=== PATIENT | male | born 1995 | race Caucasian/White ===

== ENCOUNTER 2017-07-04 23:20 | Emergency (ER) | payer OTHER ==
[~2017-07-04] VITALS: Ht 188 cm; Wt 99.8 kg
[~2017-07-04 23:20] MED LIST: ACYC400 PO; AZIT250 PO; Budeprion Sr150 MG PO; CEPH500 PO; CODACE30 PO; Cleocin HCl300 MG PO; EAR WAX DROPS15 ML OT; IBUP600 PO; Nystatin15 GM TOP; Percocet 5-3251 EACH PO; Pseudoephedrine30 MG PO; RANI150 PO; TRIPLE ANTIBIOT28 GM TOP; VALA500 PO; Zofran Odt4 MG SL; Zovirax400 MG PO
[2017-07-05 00:56] LABS: BASOPHILS ABSOLUTE AUTO 0.06 K/mm3 (0.00-0.23); BASOPHILS PERCENT AUTO 1 % (0-2); EOSINOPHILS ABSOLUTE AUTO 0.29 K/mm3 (0.00-0.68); EOSINOPHILS PERCENT AUTO 3 % (0-6); Hematocrit 45.9 % (37.0-53.0); Hemoglobin 15.6 g/dL (13.5-17.5); IMMATURE GRAN ABSOLUTE AUTO 0.03 K/mm3 (0.00-0.10); IMMATURE GRAN PERCENT AUTO 0 % (0-1); LYMPHOCYTES ABSOLUTE AUTO 2.99 K/mm3 (0.84-5.20); LYMPHOCYTES PERCENT AUTO 36 % (21-46); MONOCYTES ABSOLUTE AUTO 0.47 K/mm3 (0.16-1.47); MONOCYTES PERCENT AUTO 6 % (4-13); Mean Corpuscular HGB 29.9 pg (26.0-34.0); Mean Corpuscular Volume 88 fL (80-100); NEUTROPHILS ABSOLUTE AUTO 4.59 K/mm3 (1.96-9.15); NEUTROPHILS PERCENT AUTO 54 % (41-73); Platelet Count 185 K/mm3 (150-400); RDW Coefficient Variation 13.2 % (11.7-14.2); RDW Standard Deviation 42.4 fL (35.1-46.3); Red Blood Cell Count 5.21 M/mm3 (4.30-5.90); White Blood Cell Count 8.43 K/mm3 (4.00-11.30)
[2017-07-05 01:15] LABS: Alanine Aminotransfer (ALT/SGP 44 U/L (12-78); Albumin, Blood 4.4 g/dL (3.4-5.0); Albumin/Globulin Ratio 1.2 (0.8-1.8); Alk Phos 66 U/L (50-136); Anion Gap 8 mmol/L (6-16); Aspartate Aminotrans (AST/SGOT 23 U/L (12-37); Bilirubin, Total 0.3 mg/dL (0.1-1.0); Blood Urea Nitrogen 16 mg/dL (8-24); CO2, Blood 29 mmol/L (21-32); Calcium, Blood 9.1 mg/dL (8.5-10.1); Chloride, Blood 102 mmol/L (98-108); Creatinine, Blood 0.73 mg/dL (0.60-1.20); Globulin, Blood 3.6 g/dL (2.2-4.0); Glomerular Filtration Rate >60 (60-); Glucose, Blood 111 mg/dL (70-99); Potassium, Blood 3.4 mmol/L (3.5-5.5); Sodium, Blood 139 mmol/L (136-145); Troponin I <0.015 ng/mL (0.000-0.040)
[2017-07-05 01:31] LABS: Source, Urine Clean Catch
[2017-07-05 01:33] LABS: Bilirubin, Urine Neg (Neg); Blood, Urine Neg (Neg); Glucose Qualitative, Urine Neg (Neg); Ketones, Urine Neg (Neg); Leukocyte Esterase, Urine Neg (Neg); Nitrite, Urine Neg (Neg); Protein, Urine Neg (Neg); Urobilinogen, Urine NORM (Normal); pH, Urine 6.5 (5.0-8.0)
[2017-07-05 01:35] LABS: Appearance, Urine Clear (Clear); Color, Urine Yellow (P-Yellow)
[2018-01-06] MEDS ORDERED: TRAZ100 PO (20:36)
[2018-01-06] MEDS ORDERED: ANTIBIOTIC OINT28 GM TOP (21:17)
[2018-01-06] MEDS ORDERED: Zovirax800 MG PO (21:18)
== END 2017-07-05 02:42 | disposition home or self-care (01) ==
LOC: ER 23:20
PROVIDERS: Emergency Medicine
DX: R07.9 Chest pain, unspecified (principal); R51 Headache; F32.9 Major depressive disorder, single episode, unspecified; Z88.0 Allergy status to penicillin; Z79.899 Other long term (current) drug therapy
CPT/HCPCS: 36415; 71046; 80053; 81003; 83690; 84484; 85025; 93005; 93010; 99283; J1885

== ENCOUNTER 2017-08-12 11:13 | Emergency (ER) | payer OTHER ==
[~2017-08-12] VITALS: Ht 188 cm; Wt 104.3 kg
[2017-08-12 12:03] LABS: BASOPHILS ABSOLUTE AUTO 0.02 K/mm3 (0.00-0.23); BASOPHILS PERCENT AUTO 0 % (0-2); EOSINOPHILS ABSOLUTE AUTO 0.01 K/mm3 (0.00-0.68); EOSINOPHILS PERCENT AUTO 0 % (0-6); Hematocrit 41.6 % (37.0-53.0); IMMATURE GRAN ABSOLUTE AUTO 0.02 K/mm3 (0.00-0.10); IMMATURE GRAN PERCENT AUTO 0 % (0-1); LYMPHOCYTES ABSOLUTE AUTO 0.31 K/mm3 (0.84-5.20); LYMPHOCYTES PERCENT AUTO 7 % (21-46); MONOCYTES ABSOLUTE AUTO 0.53 K/mm3 (0.16-1.47); MONOCYTES PERCENT AUTO 12 % (4-13); Mean Corpuscular HGB 29.4 pg (26.0-34.0); Mean Corpuscular HGB Conc 33.7 g/dL (31.5-36.5); Mean Corpuscular Volume 87 fL (80-100); NEUTROPHILS ABSOLUTE AUTO 3.62 K/mm3 (1.96-9.15); NEUTROPHILS PERCENT AUTO 80 % (41-73); Red Blood Cell Count 4.76 M/mm3 (4.30-5.90); White Blood Cell Count 4.51 K/mm3 (4.00-11.30)
[2017-08-12 12:04] LABS: Mean Platelet Volume 11.8 fL (9.1-12.4); Platelet Count 135 K/mm3 (150-400)
[2017-08-12 12:21] LABS: Influenza A Positive (NEGATIVE); Influenza B Negative (NEGATIVE)
[2017-08-12 12:22] LABS: Alanine Aminotransfer (ALT/SGP 30 U/L (12-78); Albumin, Blood 4.2 g/dL (3.4-5.0); Albumin/Globulin Ratio 1.2 (0.8-1.8); Alk Phos 58 U/L (50-136); Anion Gap 6 mmol/L (6-16); Aspartate Aminotrans (AST/SGOT 19 U/L (12-37); Bilirubin, Total 0.4 mg/dL (0.1-1.0); Blood Urea Nitrogen 12 mg/dL (8-24); Bun/Creatinine Ratio 13.3 (12.0-20.0); CO2, Blood 28 mmol/L (21-32); Calcium, Blood 9.2 mg/dL (8.5-10.1); Chloride, Blood 100 mmol/L (98-108); Globulin, Blood 3.4 g/dL (2.2-4.0); Glomerular Filtration Rate >60 (60-); Glucose, Blood 88 mg/dL (70-99); Potassium, Blood 3.6 mmol/L (3.5-5.5); Sodium, Blood 134 mmol/L (136-145); Total Protein, Blood 7.6 g/dL (6.4-8.2)
[2017-08-12] MEDS ORDERED: Zofran4 MG PO (12:39)
[2017-08-12] MEDS ORDERED: ACETAMINOPHEN500 MG PO (12:39)
[2017-08-12] MEDS ORDERED: Cheratussin AC118 ML PO (12:39)
[2017-08-12] MEDS ORDERED: IBUP400 PO (12:39)
[2018-01-06] MEDS ORDERED: TRAZ100 PO (20:36)
[2018-01-06] MEDS ORDERED: ANTIBIOTIC OINT28 GM TOP (21:17)
[2018-01-06] MEDS ORDERED: Zovirax800 MG PO (21:18)
== END 2017-08-12 13:05 | disposition home or self-care (01) ==
LOC: ER 11:13
PROVIDERS: Physician Assistant
DX: J10.1 Influenza due to other identified influenza virus with other respiratory manifestations (principal); F32.9 Major depressive disorder, single episode, unspecified; F17.210 Nicotine dependence, cigarettes, uncomplicated; Z88.0 Allergy status to penicillin; Z79.899 Other long term (current) drug therapy
CPT/HCPCS: 36415; 71046; 80053; 85025; 87804; 96361; 96374; 99284; J2405; J7030

== ENCOUNTER 2017-09-12 13:21 | Emergency (ER) | payer OTHER ==
[~2017-09-12] VITALS: Ht 188 cm; Wt 95.2 kg
[~2017-09-12 13:21] MED LIST changes: +ACETAMINOPHEN500 MG PO; +Cheratussin AC118 ML PO; +IBUP400 PO; +Zofran4 MG PO
[2017-09-12 16:16] LABS: BASOPHILS ABSOLUTE AUTO 0.05 K/mm3 (0.00-0.23); BASOPHILS PERCENT AUTO 1 % (0-2); EOSINOPHILS ABSOLUTE AUTO 0.34 K/mm3 (0.00-0.68); EOSINOPHILS PERCENT AUTO 6 % (0-6); Hematocrit 47.8 % (37.0-53.0); Hemoglobin 16.3 g/dL (13.5-17.5); IMMATURE GRAN ABSOLUTE AUTO 0.03 K/mm3 (0.00-0.10); IMMATURE GRAN PERCENT AUTO 1 % (0-1); LYMPHOCYTES ABSOLUTE AUTO 2.23 K/mm3 (0.84-5.20); LYMPHOCYTES PERCENT AUTO 36 % (21-46); MONOCYTES ABSOLUTE AUTO 0.45 K/mm3 (0.16-1.47); MONOCYTES PERCENT AUTO 7 % (4-13); Mean Corpuscular HGB 29.1 pg (26.0-34.0); Mean Corpuscular HGB Conc 34.1 g/dL (31.5-36.5); Mean Platelet Volume 11.6 fL (9.1-12.4); NEUTROPHILS ABSOLUTE AUTO 3.12 K/mm3 (1.96-9.15); NEUTROPHILS PERCENT AUTO 50 % (41-73); Platelet Count 207 K/mm3 (150-400); RDW Coefficient Variation 12.5 % (11.7-14.2); RDW Standard Deviation 38.8 fL (35.1-46.3); White Blood Cell Count 6.22 K/mm3 (4.00-11.30)
[2017-09-12 16:20] LABS: Mean Corpuscular Volume 85 fL (80-100)
[2017-09-12 16:24] LABS: Alanine Aminotransfer (ALT/SGP 40 U/L (12-78); Albumin, Blood 4.5 g/dL (3.4-5.0); Albumin/Globulin Ratio 1.2 (0.8-1.8); Alk Phos 66 U/L (50-136); Anion Gap 5 mmol/L (6-16); Aspartate Aminotrans (AST/SGOT 24 U/L (12-37); Bilirubin, Total 0.5 mg/dL (0.1-1.0); Blood Urea Nitrogen 21 mg/dL (8-24); Bun/Creatinine Ratio 25.7 (12.0-20.0); CO2, Blood 28 mmol/L (21-32); Calcium, Blood 9.4 mg/dL (8.5-10.1); Chloride, Blood 105 mmol/L (98-108); Creatinine, Blood 0.82 mg/dL (0.60-1.20); Globulin, Blood 3.8 g/dL (2.2-4.0); Glomerular Filtration Rate >60 (60-); Glucose, Blood 138 mg/dL (70-99); Potassium, Blood 3.6 mmol/L (3.5-5.5); Sodium, Blood 138 mmol/L (136-145); Total Protein, Blood 8.3 g/dL (6.4-8.2)
[2017-09-12] MEDS ORDERED: ESCI20 PO (18:50)
[2017-09-12 19:48] LABS: Source, Urine Clean Catch
[2017-09-12 19:56] LABS: Blood, Urine Neg (Neg); Glucose Qualitative, Urine Neg (Neg); Ketones, Urine 1+ (Neg); Leukocyte Esterase, Urine 1+ (Neg); Nitrite, Urine Neg (Neg); Protein, Urine 1+ (Neg); Specific Gravity, Urine 1.025 (1.003-1.022); Urobilinogen, Urine 2+ (Normal)
[2017-09-12 20:04] LABS: Bilirubin, Urine 1+ (Neg)
[2017-09-12 20:05] LABS: Appearance, Urine Clear (Clear); Bacteria Many /hpf; Color, Urine Yellow (P-Yellow); Red Blood Cells, Urine 0-2 /hpf (0-2); Squamous Epithelial Cells Few /hpf (Few); White Blood Cells, Urine 0-2 /hpf (0-5)
[2017-09-12 20:06] LABS: Calcium Oxalate Crystals Few /hpf; Mucus Heavy (0-Heavy)
[2017-09-12 20:07] LABS: U Amphetamine Screen DETECTED; U Barbituate Screen Not Detected; U Benzodiazapine Screen Not Detected; U Buprenorphine Screen Not Detected; U Cannabinoids Screen Not Detected; U Cocaine Screen Not Detected; U Methadone Screen Not Detected; U Methamphetamine Screen DETECTED; U Opiates Screen Not Detected; U Oxycodone Screen Not Detected; U Phencyclidine Screen Not Detected; U Propoxyphene Screen Not Detected
== END 2017-09-12 19:40 | disposition home or self-care (01) ==
LOC: ER 13:21
PROVIDERS: Emergency Medicine
DX: R56.9 Unspecified convulsions (principal); F32.9 Major depressive disorder, single episode, unspecified; F41.9 Anxiety disorder, unspecified; F17.210 Nicotine dependence, cigarettes, uncomplicated; Z79.899 Other long term (current) drug therapy
CPT/HCPCS: 36415; 70450; 80053; 81001; 85025; 87086; 93005; 93010; 99284; G0480

== ENCOUNTER 2018-02-08 14:45 | Emergency (ER) | payer OTHER ==
[~2018-02-08] VITALS: Ht 188 cm; Wt 102.1 kg
[~2018-02-08 14:45] MED LIST changes: +ANTIBIOTIC OINT28 GM TOP; +ESCI20 PO; +TRAZ100 PO; +Zovirax800 MG PO
== END 2018-02-08 16:11 | disposition home or self-care (01) ==
LOC: ER 14:45
DX: N34.2 Other urethritis (principal); F32.9 Major depressive disorder, single episode, unspecified; F17.210 Nicotine dependence, cigarettes, uncomplicated; Z88.0 Allergy status to penicillin; Z79.899 Other long term (current) drug therapy
CPT/HCPCS: 99282; J1580

== ENCOUNTER 2018-06-18 09:27 | Emergency (ER) | payer OTHER ==
[~2018-06-18] VITALS: Ht 188 cm; Wt 113.4 kg
[2018-06-18] MEDS ORDERED: METPRE4DP PO (10:27)
[2018-06-18] MEDS ORDERED: ALBU90OI INH (10:27)
[2018-06-18] MEDS ORDERED: Zithromax250 MG PO (10:27)
[2018-07-29] MEDS ORDERED: ALBU90OI INH (19:24)
== END 2018-06-18 10:40 | disposition home or self-care (01) ==
LOC: ER 09:27
DX: J45.909 Unspecified asthma, uncomplicated (principal); Z88.0 Allergy status to penicillin; Z79.899 Other long term (current) drug therapy; F32.9 Major depressive disorder, single episode, unspecified; F17.210 Nicotine dependence, cigarettes, uncomplicated
CPT/HCPCS: 71046; 99283-25

== ENCOUNTER 2018-06-24 16:17 | Emergency (ER) | payer OTHER ==
[~2018-06-24] VITALS: Ht 188 cm; Wt 113.4 kg
[~2018-06-24 16:17] MED LIST changes: +ALBU90OI INH; +METPRE4DP PO; +Zithromax250 MG PO
[2018-06-24 17:15] LABS: Calcium, Ionized (POC) 1.19 mmol/L (1.10-1.46); Chloride (POC) 103 mmol/L (98-108); Creatinine (POC) 0.9 mg/dL (0.8-1.3); Glucose (ISTAT POC) 85 mg/dL (70-99); Hemoglobin (POC) 16.3 g/dL (13.5-17.5); Sodium (POC) 143 mmol/L (135-148); Total CO2 (POC) 27 mmol/L (21-32)
[2018-06-24] MEDS ORDERED: CEFP200 PO (17:29)
[2018-07-29] MEDS ORDERED: ALBU90OI INH (19:24)
== END 2018-06-24 17:34 | disposition home or self-care (01) ==
LOC: ER 16:17
DX: J45.909 Unspecified asthma, uncomplicated (principal); F32.9 Major depressive disorder, single episode, unspecified; F17.210 Nicotine dependence, cigarettes, uncomplicated; Z88.0 Allergy status to penicillin; Z79.899 Other long term (current) drug therapy
CPT/HCPCS: 80047; 85014; 99283

== ENCOUNTER 2018-08-21 08:29 | Emergency (ER) | payer OTHER ==
[~2018-08-21] VITALS: Ht 188 cm; Wt 115.7 kg
[~2018-08-21 08:29] MED LIST changes: +CEFP200 PO
[2018-08-21] MEDS ORDERED: TRAZ150T57 (09:00)
[2018-08-21] MEDS ORDERED: Zantac150 MG (09:00)
[2018-08-21 09:38] LABS: BASOPHILS ABSOLUTE AUTO 0.05 K/mm3 (0.00-0.23); BASOPHILS PERCENT AUTO 1 % (0-2); EOSINOPHILS ABSOLUTE AUTO 0.36 K/mm3 (0.00-0.68); EOSINOPHILS PERCENT AUTO 6 % (0-6); Hematocrit 43.6 % (37.0-53.0); Hemoglobin 14.7 g/dL (13.5-17.5); IMMATURE GRAN ABSOLUTE AUTO 0.03 K/mm3 (0.00-0.10); IMMATURE GRAN PERCENT AUTO 1 % (0-1); LYMPHOCYTES ABSOLUTE AUTO 2.06 K/mm3 (0.84-5.20); LYMPHOCYTES PERCENT AUTO 35 % (21-46); MONOCYTES ABSOLUTE AUTO 0.41 K/mm3 (0.16-1.47); MONOCYTES PERCENT AUTO 7 % (4-13); Mean Corpuscular HGB 29.6 pg (26.0-34.0); Mean Corpuscular HGB Conc 33.7 g/dL (31.5-36.5); Mean Corpuscular Volume 88 fL (80-100); Mean Platelet Volume 11.2 fL (9.1-12.4); NEUTROPHILS ABSOLUTE AUTO 3.01 K/mm3 (1.96-9.15); NEUTROPHILS PERCENT AUTO 51 % (41-73); Platelet Count 180 K/mm3 (150-400); RDW Coefficient Variation 12.9 % (11.7-14.2); RDW Standard Deviation 41.4 fL (35.1-46.3); Red Blood Cell Count 4.96 M/mm3 (4.30-5.90); White Blood Cell Count 5.92 K/mm3 (4.00-11.30)
[2018-08-21 09:50] LABS: International Normalized Ratio 0.99; Prothrombin Time Results 10.5 Sec (9.7-11.5)
[2018-08-21 10:01] LABS: Alanine Aminotransfer (ALT/SGP 104 U/L (12-78); Albumin, Blood 3.8 g/dL (3.4-5.0); Albumin/Globulin Ratio 1.2 (0.8-1.8); Alk Phos 57 U/L (50-136); Anion Gap 7 mmol/L (6-16); Aspartate Aminotrans (AST/SGOT 39 U/L (12-37); Bilirubin, Total 0.3 mg/dL (0.1-1.0); Blood Urea Nitrogen 15 mg/dL (8-24); Bun/Creatinine Ratio 20.1 (12.0-20.0); CO2, Blood 26 mmol/L (21-32); Calcium, Blood 8.6 mg/dL (8.5-10.1); Chloride, Blood 109 mmol/L (98-108); Creatinine, Blood 0.75 mg/dL (0.60-1.20); Globulin, Blood 3.1 g/dL (2.2-4.0); Glomerular Filtration Rate >60 (60-); Glucose, Blood 93 mg/dL (70-99); Potassium, Blood 3.8 mmol/L (3.5-5.5); Sodium, Blood 142 mmol/L (136-145); Total Protein, Blood 6.9 g/dL (6.4-8.2)
[2018-08-21] MEDS ORDERED: OMEPRAZOLE MAGN20 MG PO (10:30)
== END 2018-08-21 10:53 | disposition home or self-care (01) ==
LOC: ER 08:29
PROVIDERS: Emergency Medicine
DX: K92.1 Melena (principal); F32.9 Major depressive disorder, single episode, unspecified; F17.210 Nicotine dependence, cigarettes, uncomplicated; Z88.0 Allergy status to penicillin; Z79.899 Other long term (current) drug therapy
CPT/HCPCS: 36415; 80053; 82272; 85025; 85610; 96374; 99284-25; C9113

== ENCOUNTER 2018-08-30 15:28 | Emergency (ER) | payer OTHER ==
[~2018-08-30] VITALS: Ht 188 cm; Wt 113.4 kg
[~2018-08-30 15:28] MED LIST changes: +OMEPRAZOLE MAGN20 MG PO; +TRAZ150T57; +Zantac150 MG PO
[2018-08-30 16:19] LABS: BASOPHILS ABSOLUTE AUTO 0.06 K/mm3 (0.00-0.23); BASOPHILS PERCENT AUTO 1 % (0-2); EOSINOPHILS ABSOLUTE AUTO 0.31 K/mm3 (0.00-0.68); EOSINOPHILS PERCENT AUTO 3 % (0-6); Hematocrit 44.7 % (37.0-53.0); Hemoglobin 15.3 g/dL (13.5-17.5); IMMATURE GRAN ABSOLUTE AUTO 0.04 K/mm3 (0.00-0.10); IMMATURE GRAN PERCENT AUTO 0 % (0-1); LYMPHOCYTES ABSOLUTE AUTO 2.46 K/mm3 (0.84-5.20); LYMPHOCYTES PERCENT AUTO 26 % (21-46); MONOCYTES ABSOLUTE AUTO 0.46 K/mm3 (0.16-1.47); MONOCYTES PERCENT AUTO 5 % (4-13); Mean Corpuscular HGB 30.1 pg (26.0-34.0); Mean Corpuscular HGB Conc 34.2 g/dL (31.5-36.5); Mean Corpuscular Volume 88 fL (80-100); Mean Platelet Volume 11.6 fL (9.1-12.4); NEUTROPHILS ABSOLUTE AUTO 6.12 K/mm3 (1.96-9.15); NEUTROPHILS PERCENT AUTO 65 % (41-73); Platelet Count 182 K/mm3 (150-400); RDW Coefficient Variation 12.5 % (11.7-14.2); RDW Standard Deviation 40.7 fL (35.1-46.3); Red Blood Cell Count 5.08 M/mm3 (4.30-5.90); White Blood Cell Count 9.45 K/mm3 (4.00-11.30)
[2018-08-30 16:43] LABS: Alanine Aminotransfer (ALT/SGP 123 U/L (12-78); Albumin, Blood 4.2 g/dL (3.4-5.0); Albumin/Globulin Ratio 1.2 (0.8-1.8); Alk Phos 73 U/L (50-136); Anion Gap 7 mmol/L (6-16); Aspartate Aminotrans (AST/SGOT 54 U/L (12-37); Bilirubin, Total 0.3 mg/dL (0.1-1.0); Blood Urea Nitrogen 14 mg/dL (8-24); Bun/Creatinine Ratio 18.4 (12.0-20.0); CO2, Blood 24 mmol/L (21-32); Calcium, Blood 9.3 mg/dL (8.5-10.1); Chloride, Blood 108 mmol/L (98-108); Creatinine, Blood 0.76 mg/dL (0.60-1.20); Globulin, Blood 3.5 g/dL (2.2-4.0); Glomerular Filtration Rate >60 (60-); Glucose, Blood 103 mg/dL (70-99); Potassium, Blood 3.8 mmol/L (3.5-5.5); Sodium, Blood 139 mmol/L (136-145); Total Protein, Blood 7.7 g/dL (6.4-8.2)
== END 2018-08-30 18:50 | disposition left against medical advice (07) ==
LOC: ER 15:28
PROVIDERS: Physician Assistant
DX: R10.9 Unspecified abdominal pain (principal)
CPT/HCPCS: 36415; 80053; 83690; 85025; 99284

== ENCOUNTER → 2019-02-26 | Outpatient (CLI) | payer OTHER ==
[~2019-02-26] MED LIST changes: +CEFD300 PO; +Inderal80 MG
== END | disposition home or self-care (01) ==
LOC: PLD 08:39 → LAB SHORT 08:39
DX: D22.4 Melanocytic nevi of scalp and neck (principal); D22.21 Melanocytic nevi of right ear and external auricular canal
CPT/HCPCS: 88305

== ENCOUNTER 2019-03-03 00:52 | Emergency (ER) | payer OTHER ==
[~2019-03-03] VITALS: Ht 188 cm; Wt 115.7 kg
[~2019-03-03 00:52] MED LIST changes: -CEFD300 PO; -Inderal80 MG
[2019-03-04] MEDS ORDERED: Inderal80 MG (17:17)
[2019-03-04] MEDS ORDERED: CEFD300 PO (17:17)
== END 2019-03-03 02:16 | disposition home or self-care (01) ==
LOC: ER 00:52
DX: K08.89 Other specified disorders of teeth and supporting structures (principal); F32.9 Major depressive disorder, single episode, unspecified; F17.210 Nicotine dependence, cigarettes, uncomplicated; Z88.0 Allergy status to penicillin; Z79.899 Other long term (current) drug therapy
CPT/HCPCS: 64400; 99282-25

== ENCOUNTER 2019-03-04 | Emergency (ER) | payer OTHER ==
[~2019-03-04] VITALS: Ht 188 cm; Wt 115.7 kg
[2019-03-04] MEDS ORDERED: Inderal80 MG (17:17)
[2019-03-04] MEDS ORDERED: CEFD300 PO (17:17)
== END 2019-03-04 00:23 | disposition home or self-care (01) ==
LOC: ER
DX: K08.89 Other specified disorders of teeth and supporting structures (principal); Z88.0 Allergy status to penicillin; Z79.899 Other long term (current) drug therapy; F32.9 Major depressive disorder, single episode, unspecified; F17.210 Nicotine dependence, cigarettes, uncomplicated; K21.9 Gastro-esophageal reflux disease without esophagitis
CPT/HCPCS: 64400; 99282-25

== ENCOUNTER 2019-03-05 00:06 | Emergency (ER) | payer OTHER ==
[~2019-03-05] VITALS: Ht 188 cm; Wt 115.7 kg
[~2019-03-05 00:06] MED LIST changes: +CEFD300 PO; +Inderal80 MG
== END 2019-03-05 00:35 | disposition home or self-care (01) ==
LOC: ER 00:06
DX: K08.89 Other specified disorders of teeth and supporting structures (principal); Z88.0 Allergy status to penicillin; Z79.899 Other long term (current) drug therapy; F32.9 Major depressive disorder, single episode, unspecified; F17.210 Nicotine dependence, cigarettes, uncomplicated
CPT/HCPCS: 99282; A9270

== ENCOUNTER 2020-05-01 20:31 | Emergency (ER) | payer OTHER ==
[~2020-05-01] VITALS: Ht 188 cm; Wt 122.0 kg
[2020-05-01] MEDS ORDERED: Keflex500 MG PO (21:28)
== END 2020-05-01 20:57 | disposition home or self-care (01) ==
LOC: ER 20:31
DX: L02.214 Cutaneous abscess of groin (principal); F32.9 Major depressive disorder, single episode, unspecified; F17.210 Nicotine dependence, cigarettes, uncomplicated; Z88.0 Allergy status to penicillin; Z79.899 Other long term (current) drug therapy
CPT/HCPCS: 99283

== ENCOUNTER 2020-08-16 10:15 | Emergency (ER) | payer OTHER ==
[~2020-08-16] VITALS: Ht 188 cm; Wt 117.9 kg
[~2020-08-16 10:15] MED LIST changes: +Keflex500 MG PO
[2020-08-16] MEDS ORDERED: Norco 5-325 Ta1 EACH PO (11:40)
[2020-08-16] MEDS ORDERED: CYCL10 PO (11:40)
[2020-08-17] MEDS ORDERED: CYCL10 PO (15:41)
[2020-08-17] MEDS ORDERED: CAPSAICIN HOT1 EACH TD (15:41)
[2020-08-17] MEDS ORDERED: HYDR1TAB94 PO (15:41)
== END 2020-08-16 11:48 | disposition home or self-care (01) ==
LOC: ER 10:15
DX: M54.42 Lumbago with sciatica, left side (principal); M54.41 Lumbago with sciatica, right side; F17.210 Nicotine dependence, cigarettes, uncomplicated; Z88.0 Allergy status to penicillin; Z79.899 Other long term (current) drug therapy
CPT/HCPCS: 96372; 99282-25; A9270; J1885

== ENCOUNTER 2020-08-17 12:51 | Emergency (ER) | payer OTHER ==
[~2020-08-17] VITALS: Ht 188 cm; Wt 117.9 kg
[~2020-08-17 12:51] MED LIST changes: +CYCL10 PO; +Norco 5-325 Ta1 EACH PO
[2020-08-17] MEDS ORDERED: HYDR1TAB94 PO (15:41)
[2020-08-17] MEDS ORDERED: CAPSAICIN HOT1 EACH TD (15:41)
[2020-08-17] MEDS ORDERED: CYCL10 PO (15:41)
== END 2020-08-17 15:51 | disposition home or self-care (01) ==
LOC: ER 12:51
DX: M62.830 Muscle spasm of back (principal); F17.210 Nicotine dependence, cigarettes, uncomplicated; Z88.0 Allergy status to penicillin
CPT/HCPCS: 96372; 99283-25; J1885

== ENCOUNTER 2021-10-23 09:42 | Emergency (ER) | payer OTHER ==
[~2021-10-23] VITALS: Ht 188 cm; Wt 120.2 kg
[~2021-10-23 09:42] MED LIST changes: +CAPSAICIN HOT1 EACH TD; +DIPATR PO; +HYDR1TAB94 PO; +ONDA4ODT MM
[2021-10-23 10:42] LABS: BASOPHILS ABSOLUTE AUTO 0.06 K/mm3 (0.00-0.23); BASOPHILS PERCENT AUTO 1 % (0-2); EOSINOPHILS ABSOLUTE AUTO 0.37 K/mm3 (0.00-0.68); EOSINOPHILS PERCENT AUTO 5 % (0-6); Hematocrit 47.1 % (37.0-53.0); Hemoglobin 16.3 g/dL (13.5-17.5); IMMATURE GRAN ABSOLUTE AUTO 0.08 K/mm3 (0.00-0.10); IMMATURE GRAN PERCENT AUTO 1 % (0-1); LYMPHOCYTES ABSOLUTE AUTO 2.35 K/mm3 (0.84-5.20); LYMPHOCYTES PERCENT AUTO 35 % (21-46); MONOCYTES ABSOLUTE AUTO 0.44 K/mm3 (0.16-1.47); MONOCYTES PERCENT AUTO 7 % (4-13); Mean Corpuscular HGB 30.4 pg (26.0-34.0); Mean Corpuscular HGB Conc 34.6 g/dL (31.5-36.5); Mean Corpuscular Volume 88 fL (80-100); Mean Platelet Volume 11.4 fL (9.1-12.4); NEUTROPHILS ABSOLUTE AUTO 3.51 K/mm3 (1.96-9.15); NEUTROPHILS PERCENT AUTO 52 % (41-73); Platelet Count 203 K/mm3 (150-400); RDW Coefficient Variation 13.4 % (11.7-14.2); RDW Standard Deviation 42.9 fL (35.1-46.3); Red Blood Cell Count 5.37 M/mm3 (4.30-5.90); White Blood Cell Count 6.81 K/mm3 (4.00-11.30)
[2021-10-23] MEDS ORDERED: HYDCOR2.5C TOP (13:48)
== END 2021-10-23 14:07 | disposition home or self-care (01) ==
LOC: ER 09:42
PROVIDERS: Emergency Medicine
DX: K64.4 Residual hemorrhoidal skin tags (principal); K21.9 Gastro-esophageal reflux disease without esophagitis; F17.210 Nicotine dependence, cigarettes, uncomplicated; Z79.899 Other long term (current) drug therapy; Z88.0 Allergy status to penicillin
CPT/HCPCS: 36415; 85025

== ENCOUNTER 2022-03-28 11:22 | Emergency (ER) | payer OTHER ==
[~2022-03-28] VITALS: Ht 188 cm; Wt 108.9 kg
[~2022-03-28 11:22] MED LIST changes: +HYDCOR2.5C TOP
[2022-03-28 12:06] LABS: BASOPHILS ABSOLUTE AUTO 0.06 K/mm3 (0.00-0.23); BASOPHILS PERCENT AUTO 1 % (0-2); EOSINOPHILS ABSOLUTE AUTO 0.26 K/mm3 (0.00-0.68); EOSINOPHILS PERCENT AUTO 4 % (0-6); Hematocrit 48.5 % (37.0-53.0); Hemoglobin 16.5 g/dL (13.5-17.5); IMMATURE GRAN ABSOLUTE AUTO 0.04 K/mm3 (0.00-0.10); IMMATURE GRAN PERCENT AUTO 1 % (0-1); LYMPHOCYTES ABSOLUTE AUTO 2.29 K/mm3 (0.84-5.20); LYMPHOCYTES PERCENT AUTO 36 % (21-46); MONOCYTES ABSOLUTE AUTO 0.37 K/mm3 (0.16-1.47); MONOCYTES PERCENT AUTO 6 % (4-13); Mean Corpuscular HGB 30.3 pg (26.0-34.0); Mean Corpuscular Volume 89 fL (80-100); Mean Platelet Volume 11.1 fL (9.1-12.4); NEUTROPHILS ABSOLUTE AUTO 3.34 K/mm3 (1.96-9.15); NEUTROPHILS PERCENT AUTO 53 % (41-73); Platelet Count 208 K/mm3 (150-400); RDW Coefficient Variation 12.6 % (11.7-14.2); RDW Standard Deviation 41.1 fL (35.1-46.3); Red Blood Cell Count 5.45 M/mm3 (4.30-5.90); White Blood Cell Count 6.36 K/mm3 (4.00-11.30)
[2022-03-28 12:16] LABS: Source, Urine Clean Catch
[2022-03-28 12:21] LABS: Albumin, Blood 4.1 g/dL (3.4-5.0); Albumin/Globulin Ratio 1.1 (0.8-1.8); Bilirubin, Total 0.4 mg/dL (0.1-1.0); Bun/Creatinine Ratio 22.8 (12.0-20.0); Calcium, Blood 9.3 mg/dL (8.5-10.1); Creatinine, Blood 0.79 mg/dL (0.60-1.20); Globulin, Blood 3.8 g/dL (2.2-4.0); Potassium, Blood 3.9 mmol/L (3.5-5.5); Total Protein, Blood 7.9 g/dL (6.4-8.2)
[2022-03-28 12:24] LABS: Bilirubin, Urine Neg (Neg); Blood, Urine Neg (Neg); Color, Urine Yellow (P-Yellow); Glucose Qualitative, Urine Neg (Neg); Ketones, Urine 1+ (Neg); Leukocyte Esterase, Urine 1+ (Neg); Nitrite, Urine Neg (Neg); Protein, Urine 1+ (Neg); Urobilinogen, Urine NORM (Normal)
[2022-03-28 12:47] LABS: Red Blood Cells, Urine 0-2 /hpf (0-2); White Blood Cells, Urine 0-2 /hpf (0-5)
[2022-03-28 12:48] LABS: Amorphous Heavy (0-Heavy); Bacteria Many /hpf; Squamous Epithelial Cells Rare /hpf (Few)
[2022-03-28 12:49] LABS: Appearance, Urine Cloudy (Clear)
[2022-03-28] MEDS ORDERED: METR500 PO (14:32)
[2022-03-28] MEDS ORDERED: CIPR500 PO (14:32)
[2022-03-28 15:07] LABS: Adenovirus F 40/41 Not Detected (NOT DETECT); Astrovirus Not Detected (NOT DETECT); Campylobacter Sp Not Detected (NOT DETECT); Cryptosporidium Not Detected (NOT DETECT); Cyclospora Cayetanensis Not Detected (NOT DETECT); E. Coli O157 Not Detected (NOT DETECT); Entamoeba Histolytica Not Detected (NOT DETECT); Enteroaggregative E. coli-EAEC Not Detected (NOT DETECT); Enteropathogenic E. coli-EPEC Not Detected (NOT DETECT); Enterotoxigenic E. coli-ETEC Not Detected (NOT DETECT); Giardia Lamblia Not Detected (NOT DETECT); Norovirus GI/GII Not Detected (NOT DETECT); Plesiomonas Shigelloides Not Detected (NOT DETECT); Rotavirus A Not Detected (NOT DETECT); Salmonella Sp Not Detected (NOT DETECT); Sapovirus Not Detected (NOT DETECT); Shiga Toxin-prod E. coli-STEC Not Detected (NOT DETECT); Shigella/Enteroin E. coli-EIEC Not Detected (NOT DETECT); Vibrio Cholerae Not Detected (NOT DETECT); Vibrio Sp Not Detected (NOT DETECT); Yersinia Enterocolitica Not Detected (NOT DETECT)
== END 2022-03-28 14:41 | disposition home or self-care (01) ==
LOC: ER 11:22
PROVIDERS: Emergency Medicine; Physician Assistant
DX: K62.89 Other specified diseases of anus and rectum (principal); K21.9 Gastro-esophageal reflux disease without esophagitis; F17.210 Nicotine dependence, cigarettes, uncomplicated; Z79.899 Other long term (current) drug therapy
CPT/HCPCS: 36415; 74177; 80053; 81001; 83690; 85025; 86850; 86900; 86901; 87086; 87324; 87507; J2405; Q9967

== ENCOUNTER 2022-06-28 10:09 | Emergency (ER) | payer OTHER ==
[~2022-06-28] VITALS: Ht 188 cm; Wt 117.9 kg
[~2022-06-28 10:09] MED LIST changes: +CIPR500 PO; +METR500 PO
[2022-06-28] MEDS ORDERED: Norco 5-325 Ta1 EACH PO (11:52)
[2022-06-28] MEDS ORDERED: Prednisone20 MG PO (11:52)
[2022-06-28] MEDS ORDERED: CYCL10 PO (11:52)
== END 2022-06-28 12:08 | disposition home or self-care (01) ==
LOC: ER 10:09
DX: M54.50 Low back pain, unspecified (principal); F17.210 Nicotine dependence, cigarettes, uncomplicated; Z88.0 Allergy status to penicillin
CPT/HCPCS: 96372; 99282-25; A9270; J1885; J7512

== ENCOUNTER 2022-07-11 02:08 | Emergency (ER) | payer OTHER ==
[~2022-07-11] VITALS: Ht 188 cm; Wt 113.4 kg
[~2022-07-11 02:08] MED LIST changes: +Prednisone20 MG PO
== END 2022-07-11 03:10 | disposition home or self-care (01) ==
LOC: ER 02:08
DX: K08.89 Other specified disorders of teeth and supporting structures (principal); F17.210 Nicotine dependence, cigarettes, uncomplicated; Z88.0 Allergy status to penicillin; Z79.899 Other long term (current) drug therapy
CPT/HCPCS: 64400; 99282-25

== ENCOUNTER 2024-03-01 20:52 | Inpatient (IN) | payer OTHER ==
[~2024-03-01] VITALS: Ht 188 cm; Wt 102.2 kg
[~2024-03-01 20:52] MED LIST changes: +Doxycycline Mo100 M1 PO; +OMEP20ER PO
[2024-03-01] MEDS ORDERED: Naloxone HCl 1MG / ML 2ML SYR ONE (21:06)
[2024-03-01] MEDS ORDERED: Naloxone HCl 1MG / ML 2ML SYR IV ONE ×2 (21:10→21:25)
[2024-03-01] MEDS ORDERED: LORazepam 2 MG/ML 1ML Injection IV ONE (21:15)
[2024-03-01] MEDS ORDERED: NS IV SCH (21:15)
[2024-03-01] MEDS ORDERED: NALOXONE HCL IV SCH (21:15)
[2024-03-01 21:41] LABS: BASOPHILS ABSOLUTE AUTO 0.05 K/mm3 (0.00-0.23); BASOPHILS PERCENT AUTO 1 % (0-2); EOSINOPHILS ABSOLUTE AUTO 0.27 K/mm3 (0.00-0.68); EOSINOPHILS PERCENT AUTO 3 % (0-6); Hematocrit 47.7 % (37.0-53.0); Hemoglobin 15.8 g/dL (13.5-17.5); IMMATURE GRAN ABSOLUTE AUTO 0.04 K/mm3 (0.00-0.10); IMMATURE GRAN PERCENT AUTO 0 % (0-1); LYMPHOCYTES ABSOLUTE AUTO 2.64 K/mm3 (0.84-5.20); LYMPHOCYTES PERCENT AUTO 26 % (21-46); MONOCYTES ABSOLUTE AUTO 0.33 K/mm3 (0.16-1.47); MONOCYTES PERCENT AUTO 3 % (4-13); Mean Corpuscular HGB 28.9 pg (26.0-34.0); Mean Corpuscular HGB Conc 33.1 g/dL (31.5-36.5); Mean Corpuscular Volume 87 fL (80-100); Mean Platelet Volume 10.6 fL (9.1-12.4); NEUTROPHILS ABSOLUTE AUTO 6.79 K/mm3 (1.96-9.15); NEUTROPHILS PERCENT AUTO 67 % (41-73); Platelet Count 200 K/mm3 (150-400); RDW Coefficient Variation 12.6 % (11.7-14.2); RDW Standard Deviation 40.3 fL (35.1-46.3); Red Blood Cell Count 5.47 M/mm3 (4.30-5.90); White Blood Cell Count 10.12 K/mm3 (4.00-11.30)
[2024-03-01 21:58] LABS: Albumin, Blood 3.7 g/dL (3.4-5.0); Albumin/Globulin Ratio 0.9 (0.8-1.8); Bilirubin, Total 0.8 mg/dL (0.1-1.0); Bun/Creatinine Ratio 25.2 (12.0-20.0); Calcium, Blood 8.9 mg/dL (8.5-10.1); Creatinine, Blood 0.95 mg/dL (0.60-1.20); Globulin, Blood 3.9 g/dL (2.2-4.0); Potassium, Blood 4.5 mmol/L (3.5-5.5); Total Protein, Blood 7.6 g/dL (6.4-8.2)
[2024-03-01] MEDS ORDERED: FLU VACC TS2024-25(6MOS UP)/PF 45 MCG/0.5 ML SYRINGE IM ONE (22:50)
[2024-03-01] MEDS ORDERED: Acetaminophen 650 MG Supp PR PRN (22:50)
[2024-03-01] MEDS ORDERED: Ondansetron HCl 2 MG / ML 2ML Vial IV PRN (22:50)
[2024-03-01] MEDS ORDERED: Acetaminophen 325 MG TABLET PO PRN (22:50)
[2024-03-01] MEDS ORDERED: Ondansetron HCl 2 MG / ML 2ML Vial ONE (23:02)
[2024-03-01] MEDS ORDERED: NALOXONE HCL IV PRN (23:05)
[2024-03-01] MEDS ORDERED: NS IV PRN (23:05)
[2024-03-01] MEDS ORDERED: Ondansetron HCl 2 MG / ML 2ML Vial IV ONE (23:15)
[2024-03-02] VITALS (18 sets, daily range): BP systolic 82–105; BP diastolic 44–64
[2024-03-02 01:16] LABS: Base Excess Venous -2.5 mmol/L; Bicarbonate Venous 22.2 mmol/L (24.0-30.0); PCO2 Venous 45.6 mmHg (38-42); pH Blood Venous 7.32 (7.34-7.37)
--- NOTE | 2024-03-02 03:36 | NUR ---
PT ARRIVES TO ROOM ICU 14 FROM ED AT 0240 THIS MORNING. PT ON NARCAN DRIP AND PRECEDEX DRIP. PT HAS BIPAP ON AND IS TOLERATING WELL. MAINTAINS SATURATIONS > 95 PERCENT. PT'S TO ROOM. ASSISTS WITH ANSWERING ADMISSION QUESTIONARE. PT IN NO APPARENT DISTRESS AT THIS TIME. WILL REVIEW CHART AND PLAN OF CARE FOR THIS PT.
[2024-03-02 03:39] LABS: BASOPHILS ABSOLUTE AUTO 0.03 K/mm3 (0.00-0.23); BASOPHILS PERCENT AUTO 0 % (0-2); EOSINOPHILS ABSOLUTE AUTO 0.03 K/mm3 (0.00-0.68); EOSINOPHILS PERCENT AUTO 0 % (0-6); Hematocrit 42.2 % (37.0-53.0); Hemoglobin 14.4 g/dL (13.5-17.5); IMMATURE GRAN ABSOLUTE AUTO 0.08 K/mm3 (0.00-0.10); IMMATURE GRAN PERCENT AUTO 1 % (0-1); LYMPHOCYTES ABSOLUTE AUTO 1.02 K/mm3 (0.84-5.20); LYMPHOCYTES PERCENT AUTO 6 % (21-46); MONOCYTES ABSOLUTE AUTO 0.84 K/mm3 (0.16-1.47); MONOCYTES PERCENT AUTO 5 % (4-13); Mean Corpuscular HGB 29.3 pg (26.0-34.0); Mean Corpuscular HGB Conc 34.1 g/dL (31.5-36.5); Mean Corpuscular Volume 86 fL (80-100); Mean Platelet Volume 10.4 fL (9.1-12.4); NEUTROPHILS ABSOLUTE AUTO 15.43 K/mm3 (1.96-9.15); NEUTROPHILS PERCENT AUTO 88 % (41-73); Platelet Count 200 K/mm3 (150-400); RDW Coefficient Variation 12.6 % (11.7-14.2); RDW Standard Deviation 39.8 fL (35.1-46.3); Red Blood Cell Count 4.92 M/mm3 (4.30-5.90); White Blood Cell Count 17.43 K/mm3 (4.00-11.30)
[2024-03-02 04:04] LABS: Albumin, Blood 3.3 g/dL (3.4-5.0); Albumin/Globulin Ratio 0.9 (0.8-1.8); Bilirubin, Total 0.9 mg/dL (0.1-1.0); Bun/Creatinine Ratio 26.2 (12.0-20.0); Calcium, Blood 8.9 mg/dL (8.5-10.1); Creatinine, Blood 0.95 mg/dL (0.60-1.20); Globulin, Blood 3.5 g/dL (2.2-4.0); Magnesium, Blood 1.7 mg/dL (1.6-2.4); Potassium, Blood 4.1 mmol/L (3.5-5.5); Total Protein, Blood 6.8 g/dL (6.4-8.2)
--- NOTE | 2024-03-02 04:08 | NUR ---
CALL MADE TO DR SANDOVAL SECONDARY TO PT'S BLOOD PRESSURES DROPPING WITH LAST 84/52WITH MAP 63. FLUID ORDERS RECEIVED.
[2024-03-02] MEDS ORDERED: NS 1,000 ML IV SCH (04:10)
[2024-03-02] MEDS ORDERED: NS 500 ML IV ONE (04:10)
--- NOTE | 2024-03-02 05:03 | NUR ---
CALL TO DR SANDOVAL WITH RETURNED REPORT FROM CT. INFORMATION GIVEN.
[2024-03-02] MEDS ORDERED: Azithromycin 500 MG in NS 250 ML IV SCH (05:24)
[2024-03-02] MEDS ORDERED: Vancomycin HCL 2,000 MG in NS 500 ML IV ONE (05:30)
[2024-03-02 05:58] LABS: Base Excess Venous -0.1 mmol/L; pH Blood Venous 7.37 (7.34-7.37)
[2024-03-02] MEDS ORDERED: CefTRIAXone Sodium 1,000 MG in NS 100 ML IV SCH (06:00)
[2024-03-02] MEDS ORDERED: Enoxaparin 40 MG/0.4 ML SYR SC SCH (09:00)
[2024-03-02] MEDS ORDERED: DOXY100 PO (11:22)
--- NOTE | 2024-03-02 12:01 | NUR ---
DISCHARGE SUMMARY PT IS STABLE ON ROOM AIR, VSS. 2 IVS REMOVED, NO REDNESS OR SWELLING NOTED. RX FAXED TO PHARMACY. DISCHARGE INSTRUCTIONS GIVEN, QUESTIONS ANSWERED. PT LEFT WITH ALL BELONGINGS. TO ESCORT PT OUT ON FOOT.
--- NOTE | 2024-03-02 12:07 | NUR ---
ASSUMED CARE PT IS A&OX4, ANSWERS QUESTIONS APPROPRIATLY. VSS. MOVED FROM BIPAP TO ROOM AIR. SATS ARE IN THE 90'S, DENIES SOB OR DIFFICULTY BREATHING. PT WAS OFFERED REFERRAL TO [facility] AND TX WITH SUBOXONE FOR PAIN. PT DENIED ALL OFFERS FOR TREATMENT AND STATED HE WAS READY TO GO HOME. PT HAS REMAINED IN NSR THIS SHIFT, HR IN THE 80-90'S. DENIES CP. LUNG SOUNDS CLEAR. AMBULATED TO TOILET INDEPENDENTLY W/ SB ASSIST FOR SAFETY. VOIDED W/O DIFFICULTY. ABX INFUSING, NALOXONE AND PRECEDEX ON SB SINCE PREVIOUS SHIFT. TOLERATED PO W/O N/V.
[2024-03-02] MEDS ORDERED: Vancomycin HCL 1,250 MG in NS 250 ML IV SCH (14:00)
== END 2024-03-02 12:01 | disposition home or self-care (01) | DRG 917 ==
LOC: ER 20:52 → ERHOLD 20:53 → ICUE 20:53
PROVIDERS: Emergency Medicine; ADMIT Student in an Organized Health Care Education/Training Program
PROC: 5A09357 Assistance with Respiratory Ventilation, Less than 24 Consecutive Hours, Continuous Positive Airway Pressure (ICD-10-PCS; principal; 2024-03-01)
DX: T40.411A Poisoning by fentanyl or fentanyl analogs, accidental (unintentional), initial encounter (principal); J18.9 Pneumonia, unspecified organism; J69.0 Pneumonitis due to inhalation of food and vomit; J96.01 Acute respiratory failure with hypoxia; R04.2 Hemoptysis; S27.322A Contusion of lung, bilateral, initial encounter; F32.A Depression, unspecified; F17.210 Nicotine dependence, cigarettes, uncomplicated; F11.10 Opioid abuse, uncomplicated; F15.10 Other stimulant abuse, uncomplicated; M54.2 Cervicalgia; Z88.0 Allergy status to penicillin
CPT/HCPCS: 36415; 71045; 71250; 72125; 80053; 82803; 83735; 84145; 85025; 93005; 93010; 94660; 96365; 96368; 96375; 96376; 99285-25; J0456; J0696; J2060; J2310; J2405; J3370; J7030; J7040; J7050

== ENCOUNTER 2024-04-03 03:17 | Emergency (ER) | payer OTHER ==
[~2024-04-03] VITALS: Ht 188 cm; Wt 99.8 kg
[~2024-04-03 03:17] MED LIST changes: +DOXY100 PO
[2024-04-03] MEDS ORDERED: Naloxone HCl 1MG / ML 2ML SYR ONE ×2 (03:19→03:28)
[2024-04-03] MEDS ORDERED: NARCAN4 M1 (11:19)
[2024-04-03 11:30] VITALS: BP 127/69
== END 2024-04-03 11:54 | disposition home or self-care (01) ==
LOC: ER 03:17
DX: T40.411A Poisoning by fentanyl or fentanyl analogs, accidental (unintentional), initial encounter (principal); R40.4 Transient alteration of awareness; F17.210 Nicotine dependence, cigarettes, uncomplicated; Z88.0 Allergy status to penicillin
CPT/HCPCS: 99283; J2310

== ENCOUNTER 2024-06-19 09:06 | Emergency (ER) | payer OTHER ==
[~2024-06-19] VITALS: Ht 172.7 cm; Wt 81.7 kg
[~2024-06-19 09:06] MED LIST changes: +NARCAN4 M1
[2024-06-19] MEDS ORDERED: NS 1,000 ML IV SCH (09:35)
[2024-06-19] MEDS ORDERED: Pantoprazole Sodium 40 MG Injection IV ONE (09:35)
[2024-06-19] MEDS ORDERED: Ondansetron HCl 2 MG / ML 2ML Vial IV ONE (09:35)
[2024-06-19 10:21] LABS: BASOPHILS ABSOLUTE AUTO 0.05 K/mm3 (0.00-0.23); BASOPHILS PERCENT AUTO 1 % (0-2); EOSINOPHILS ABSOLUTE AUTO 0.65 K/mm3 (0.00-0.68); EOSINOPHILS PERCENT AUTO 7 % (0-6); Hematocrit 47.9 % (37.0-53.0); Hemoglobin 16.3 g/dL (13.5-17.5); IMMATURE GRAN ABSOLUTE AUTO 0.02 K/mm3 (0.00-0.10); IMMATURE GRAN PERCENT AUTO 0 % (0-1); LYMPHOCYTES ABSOLUTE AUTO 1.21 K/mm3 (0.84-5.20); LYMPHOCYTES PERCENT AUTO 12 % (21-46); MONOCYTES ABSOLUTE AUTO 0.43 K/mm3 (0.16-1.47); MONOCYTES PERCENT AUTO 4 % (4-13); Mean Corpuscular HGB 29.1 pg (26.0-34.0); Mean Corpuscular Volume 85 fL (80-100); NEUTROPHILS ABSOLUTE AUTO 7.45 K/mm3 (1.96-9.15); NEUTROPHILS PERCENT AUTO 76 % (41-73); Platelet Count 180 K/mm3 (150-400); RDW Coefficient Variation 12.1 % (11.7-14.2); RDW Standard Deviation 37.9 fL (35.1-46.3); Red Blood Cell Count 5.61 M/mm3 (4.30-5.90); White Blood Cell Count 9.81 K/mm3 (4.00-11.30)
[2024-06-19 10:45] LABS: Albumin, Blood 3.9 g/dL (3.4-5.0); Bilirubin, Total 0.5 mg/dL (0.1-1.0); Bun/Creatinine Ratio 19.2 (12.0-20.0); Calcium, Blood 9.9 mg/dL (8.5-10.1); Creatinine, Blood 0.88 mg/dL (0.60-1.20); Globulin, Blood 4.1 g/dL (2.2-4.0); Potassium, Blood 3.9 mmol/L (3.5-5.5)
[2024-06-19 12:26] LABS: CORONAVIRUS COVID-19 AG Negative (NEGATIVE); INFLUENZA A AG Negative (NEGATIVE); INFLUENZA B AG Negative (NEGATIVE)
[2024-06-19 12:45] VITALS: BP 128/75
[2024-06-19] MEDS ORDERED: PROM25 PO (12:49)
[2024-06-19] MEDS ORDERED: Lidocaine 2% Viscous Soln 15 ML UDC PO ONE (12:55)
[2024-06-19] MEDS ORDERED: Mag Hydrox/AL Hydrox/Simeth 30 ML UDC PO ONE (12:55)
== END 2024-06-19 13:00 | disposition home or self-care (01) ==
LOC: ER 09:06
PROVIDERS: Emergency Medicine
DX: A08.4 Viral intestinal infection, unspecified (principal); K92.0 Hematemesis
CPT/HCPCS: 80053; 83690; 85025; 87428-QW; 96374; 96375; 99284-25; A9270; J2405; J2470; J7030